=== PATIENT | female | born 1980 ===

== ENCOUNTER 2025-01-04 13:01 | Outpatient (CLI) | payer OTHER | END 2025-01-04 13:10 | disposition home or self-care (01) | LOC: EKG 13:01 | PROVIDERS: ATTEND Internal Medicine | DX: I10 Essential (primary) hypertension (principal); Z01.818 Encounter for other preprocedural examination ==

== ENCOUNTER 2025-01-11 09:46 | Day surgery (SDC) | payer OTHER ==
[2025-01-11] MEDS ORDERED: POVIDONE-IODINE 118 ML BOTT TOP ONE (13:30)
[2025-01-11] MEDS ORDERED: CEFAZOLIN SODIUM 1,000 MG VIAL IV ONE (13:30)
== END 2025-01-11 19:35 | disposition home or self-care (01) ==
LOC: CIR.AMB 09:46
PROVIDERS: ATTEND Obstetrics & Gynecology
DX: N84.0 Polyp of corpus uteri (principal)